=== PATIENT | male | born 1985 | race Caucasian/White ===

== ENCOUNTER 2018-12-04 16:55 | Emergency (ER) | payer OTHER ==
[2018-12-04] MEDS ORDERED: Ketorolac 60 MG/2 ML SDV IM ONE (17:11)
[2018-12-04] MEDS ORDERED: Lidocaine 2% Viscous Solution 15 ML Cup PO ONE (17:15)
[2018-12-04] MEDS ORDERED: Benzocaine 20% Topical Spray UD MUCMEM ONE (17:15)
--- NOTE | 2018-12-04 17:17 | EDM.PDOC ---
ED HPI GENERAL MEDICAL PROBLEM - General Chief Complaint: General Stated Complaint: ORAL PAIN Time Seen by Provider: 12/04/18 17:04 Source of Information: Reports: Patient History Limitations: Reports: No Limitations - History of Present Illness INITIAL COMMENTS - FREE TEXT/NARRATIVE: Presents reporting postextraction pain. The patient states that he had bilateral mandibular wisdom tooth extractions on Monday. Now he has pain and swelling particularly on the right. He just started taking his antibiotic today. He did call his oral surgeon out in [place] who told him he may have a dry socket and may need a packing. No fever - Related Data Allergies Allergy/AdvReac Type Severity Reaction Status Date / Time No Known Allergies Allergy Verified 12/04/18 17:10 Home Meds: Home Meds Acetaminophen with Codeine [Tylenol with Codeine #3 Tablet] 1 tab PO Q6H [History] Amoxicillin/Clavulanate K [Augmentin 875-125 MG] 1 tab PO BID 12/04/18 [History] ED ROS GENERAL - Review of Systems Review Of Systems: ROS reveals no pertinent complaints other than HPI. ED EXAM, GENERAL - Physical Exam Exam: See Below Exam Limited By: No Limitations General Appearance: Alert, No Apparent Distress Ears: Normal External Exam, Normal TMs Nose: Normal Inspection Throat/Mouth: Other (Gingival swelling over extraction sites with mild erythema no exudates no jaw swelling or tenderness. No throat swelling or erythema) Head: Atraumatic, Normocephalic Neck: Normal Inspection. No: Lymphadenopathy (L), Lymphadenopathy (R) Respiratory/Chest: No Respiratory Distress, Lungs Clear, Normal Breath Sounds Cardiovascular: Regular Rate, Rhythm, No Murmur Neurological: Alert, Oriented Psychiatric: Normal Affect, Normal Mood Skin Exam: Warm, Dry, Intact, Normal Color, No Rash Course - Orders/Labs/Meds Orders: Active Orders 24 hr Category Date Time Status Ketorolac [Toradol] Med 12/04/18 17:11 Once 60 mg IM ONETIME ONE Departure - Departure Time of Disposition: 17:16 Disposition: Home, Self-Care 01 Condition: Good Clinical Impression: Dry tooth socket - Discharge Information Referrals: PCP,None [Primary Care Provider] - Additional Instructions: 1. Warm saltwater rinses every 2 hours and after meals 2. Take your antibiotics as directed 3. Dental balls, place over affected area and bite down gently 10 minutes every 2 hours 4. Add an NSAID: Aleve, 2 tabs a.m. and 2 tabs p.m. or ibuprofen 2-3 tabs 3 times daily 5. You have been given a list of local dentists. Please follow-up if symptoms worsen or he develop a fever. - My Orders Last 24 Hours: My Active Orders 12/04/18 17:11 Ketorolac [Toradol] 60 mg IM ONETIME ONE - Assessment/Plan Last 24 Hours: My Active Orders 12/04/18 17:11 Ketorolac [Toradol] 60 mg IM ONETIME ONE
== END 2018-12-04 17:57 | disposition home or self-care (01) ==
LOC: MW.ED 16:55
DX: M27.3 Alveolitis of jaws (principal)
CPT/HCPCS: 96372; 99282; A9270; J1885